=== PATIENT | male | born 1955 | race Caucasian/White ===

== ENCOUNTER 2017-01-05 17:26 | Emergency (ER) | payer BC ==
[2017-01-05 17:34] VITALS: BMI 25.8
--- NOTE | 2017-01-05 18:25 | DR.GENAD ---
HPI - PCP Primary Care Physician: LETA - Complaint/Symptoms Chief Complaint:: PATIENT STATED HE JUST GOT OF WORK AND HIS BLOOD PRESSURE WAS HIGH HE CALLED HIS DOCTOR AND WAS TOLD TO COME THE THE ER. HAD A MN 10 YEARS AGO. - Source History Provided: Patient - Mode of Arrival Mode of Arrival: Ambulatory - Timing Onset of Chief Complaint: 01/05/17 PMH - PMH Past Medical History: Yes Past Medical History: Dyslipidemia, Hypertension Past Surgical History: Yes Surgical History: Ortho Surgery, Tonsillectomy - Family History History of Family Medical Conditions: No - Social History Does patient currently use any type of tobacco product: No Have you used tobacco products in the last 12 months: No Type of Tobacco Use: None Does any household member use tobacco: No Alcohol Use: Rarely Do you use any recreational Drugs:: No Lives With: Family Lives Where: Home - infectious screening In the last 2 months have you had wt loss of >10#?: NO Have you had fever, night sweats or hemotysis?: No Have you traveled outside the country in the last 6 months?: No Isolation: Standard ROS - Review of Systems Eyes: No Symptoms Reported ENTM: No Symptoms Reported Respiratoy: No Symptoms Reported Cardiovascular: No Symptoms Reported Gastrointestinal/Abdominal: No Symptoms Reported Genitourinary: No Symptoms Reported Neurological: No Symptoms Reported Musculoskeletal: No Symptoms Reported Integumentary: No Symptoms Reported Hematologic/Lymphatic: No Symptoms Reported Endocrine: No Symptoms Reported Psychiatric: No Symptoms Reported All Other Systems: Reviewed and Negative PE - Vital Signs Vitals: Temperature 98.3 F Pulse Rate 78 Respiratory Rate 16 Blood Pressure 148/97 O2 Sat by Pulse Oximetry 100 - General Limitations: No Limitations General Appearance: Alert, In No Apparent Distress - Head Head Exam: Normal Inspection, Atraumatic - Eyes Eye exam: Normal Appearance, PERRL, EOMI - ENT ENT Exam: Normal Exam External Ear Exam: Normal External Inspection TM/Canal Exam: Bilateral Normal Nose Exam: Normal Nose Exam Mouth Exam: Normal Inspection Throat Exam: Normal Inspection - Neck Neck Exam: Normal Inspection, Full ROM - Chest Chest Inspection: Normal Inspection - Respiratory Respiratory Exam: Normal Lung Sounds Bilat Respiratory Exam: Bilateral Clear to Auscultation - Cardiovascular Cardiovascular Exam: Regular Rate, Normal Rhythm - Abdominal Exam Abdominal Exam: Normal Inspection, Normal Bowel Sounds Abdominal Tenderness: negative: RUQ, RLQ, LUQ, LLQ, Epigastrium, Suprapubic, Diffuse, Mild, Moderate, Severe, Other - Extremities Extremities Exam: Normal Inspection, Full ROM - Neurologic Neurological Exam: Alert, Oriented X3 - Psychiatric Psychiatric Exam: Normal Affect - Skin Skin Exam: Warm, Dry, Intact ROR - Labs Reviewed Result Diagrams: 01/05/17 18:30 01/05/17 18:30 Laboratory: WBC 5.8 X10^3/uL (3.6-10.0) 01/05/17 18:30 RBC 4.99 X10^6/uL (4.7-6.0) 01/05/17 18:30 Hgb 16.1 g/dL (13.5-18.0) 01/05/17 18:30 Hct 45.0 % (42.0-54.0) 01/05/17 18:30 MCV 90.3 fL (80.0-100.0) 01/05/17 18:30 MCH 32.2 pg (27.0-34.0) 01/05/17 18:30 MCHC 35.7 g/dL (33.0-35.0) H 01/05/17 18:30 RDW 13.0 % (11.6-16.5) 01/05/17 18:30 Plt Count 218 X10^3/uL (150.0-450.0) 01/05/17 18:30 MPV 7.8 fL (7.4-11.0) 01/05/17 18:30 Neut % 60.9 % (42.0-75.0) 01/05/17 18:30 Lymph % 27.7 % (21.0-51.0) 01/05/17 18:30 [facility] % 8.8 % (0.0-13.0) 01/05/17 18:30 Eos % 1.8 % (0.9-2.9) 01/05/17 18:30 Baso % 0.8 % (0.2-1.0) 01/05/17 18:30 Neut # 3.6 x10^3/uL (2.2-4.8) 01/05/17 18:30 Lymph # 1.6 X10^3/uL (1.3-2.9) 01/05/17 18:30 [facility] # 0.5 x10^3/uL (0.3-0.8) 01/05/17 18:30 Eos # 0.1 x10^3/uL (0.0-0.2) 01/05/17 18:30 Baso # 0.0 X10^3/uL (0.0-0.1) 01/05/17 18:30 Absolute Nucleated RBC 0.1 /100WBC 01/05/17 18:30 Sodium 136 mmol/L (136-145) 01/05/17 18:30 Corrected Sodium TNP 01/05/17 18:30 Potassium 3.8 mmol/L (3.5-5.1) 01/05/17 18:30 Chloride 103 mmol/L (98-107) 01/05/17 18:30 Carbon Dioxide 26.3 mmol/L (21-32) 01/05/17 18:30 BUN 18 mg/dL (7-18) 01/05/17 18:30 Creatinine 1.26 mg/dL (0.70-1.30) 01/05/17 18:30 Est GFR (MDRD) Af Amer > 60 (>60) 01/05/17 18:30 Est GFR (MDRD) Non-Af > 60 (>60) 01/05/17 18:30 Glucose 87 mg/dL (65-99) 01/05/17 18:30 Calcium 9.2 mg/dL (8.5-10.1) 01/05/17 18:30 - Diagnosis Discharge Problem: History of hypertension - Discharge Plan Condition: Stable - Follow ups/Referrals Follow ups/Referrals: Ronak Morin [Primary Care Provider] - 3 days - Instructions
[2017-01-05 18:46] LABS: BASOPHILS % (AUTO) 0.8 % (0.2-1.0); EOSINOPHILS # (AUTO) 0.1 x10^3/uL (0.0-0.2); EOSINOPHILS % (AUTO) 1.8 % (0.9-2.9); HEMOGLOBIN 16.1 g/dL (13.5-18.0); LYMPHOCYTES # (AUTO) 1.6 X10^3/uL (1.3-2.9); LYMPHOCYTES % (AUTO) 27.7 % (21.0-51.0); MEAN CORPUSCULAR HEMOGLOBIN 32.2 pg (27.0-34.0); MEAN CORPUSCULAR HGB CONC 35.7 g/dL (33.0-35.0); MEAN CORPUSCULAR VOLUME 90.3 fL (80.0-100.0); MEAN PLATELET VOLUME 7.8 fL (7.4-11.0); MONOCYTES # (AUTO) 0.5 x10^3/uL (0.3-0.8); MONOCYTES % (AUTO) 8.8 % (0.0-13.0); NEUTROPHILS # (AUTO) 3.6 x10^3/uL (2.2-4.8); NEUTROPHILS % (AUTO) 60.9 % (42.0-75.0); PLATELET COUNT 218 X10^3/uL (150.0-450.0); RED BLOOD COUNT 4.99 X10^6/uL (4.7-6.0); WHITE BLOOD COUNT 5.8 X10^3/uL (3.6-10.0)
[2017-01-05 18:47] LABS: BLOOD UREA NITROGEN 18 mg/dL (7-18); CALCIUM 9.2 mg/dL (8.5-10.1); CARBON DIOXIDE 26.3 mmol/L (21-32); CHLORIDE 103 mmol/L (98-107); CREATININE 1.26 mg/dL (0.70-1.30); SODIUM 136 mmol/L (136-145); eGFR BLACK RACES > 60 (>60); eGFR NON BLACK RACES > 60 (>60)
[2017-01-05 19:28] VITALS: BP 131/83
== END 2017-01-05 19:28 | disposition home or self-care (01) ==
LOC: ER 17:44
DX: I10 Essential (primary) hypertension (principal)
CPT/HCPCS: 36415; 80048; 85025; 99282; 99283